=== PATIENT | female | born 1940 | race Caucasian/White ===

== ENCOUNTER → 2017-06-06 | Outpatient (CLI) | payer OTHER, BC ==
[~2017-06-06] MED LIST: AMLODIPINE BESY10 MG PO; ASPIR 8181 MG PO; CALCIUM 600 +1 EAC1 PO; CENTRUM SILVER1 EAC4 PO; FIBER0.52 GM PO; FISH OIL 1,001000 M2 PO; LEVOTHYROXIN0.112 M1 PO; LIPITOR10 MG PO; MACROBID 100 M100 M3 PO; ONDANSETRON HCL4 M2 PO; SYMBICORT160 MCG/4. INH; VENTOLIN HFA 1818 GM INH
== END ==
LOC: CAT 12:54
DX: R91.8 Other nonspecific abnormal finding of lung field (principal)

== ENCOUNTER 2020-02-09 09:26 | Emergency (ER) | payer OTHER ==
[~2020-02-09] VITALS: Ht 172.7 cm; Wt 79.4 kg
[2020-02-09] MEDS ORDERED: AMITRIPTYLINE H25 M2 PO (09:40)
[2020-02-09 11:59] VITALS: BP 138/51
== END 2020-02-09 11:59 | disposition home or self-care (01) ==
LOC: ER 09:26
DX: R04.0 Epistaxis (principal); I10 Essential (primary) hypertension; E78.00 Pure hypercholesterolemia, unspecified; E03.9 Hypothyroidism, unspecified; Z90.711 Acquired absence of uterus with remaining cervical stump; Z79.899 Other long term (current) drug therapy; Z98.890 Other specified postprocedural states; Z79.82 Long term (current) use of aspirin; Z88.2 Allergy status to sulfonamides